=== PATIENT | male | born 1990 | race Two or more races ===

== ENCOUNTER 2021-02-22 18:54 | Emergency (ER) | payer OTHER ==
[~2021-02-22] VITALS: Ht 172.7 cm; Wt 81.8 kg
[2021-02-22] MEDS ORDERED: LIDOCAINE 2%/EPI 1:100,000 20 ML VIAL. INJ ONE (19:30)
[2021-02-22] MEDS ORDERED: LIDOCAINE 2% Multi-Dose 20 ML VIAL. ONE (19:33)
[2021-02-22] MEDS ORDERED: LIDOCAINE 1%/EPI 1:100,000 20 ML VIAL. ONE (19:36)
[2021-02-22 19:42] VITALS: BP 126/61
--- NOTE | 2021-02-22 21:20 | RAD ---
XR FOOT_RIGHT 3 VIEWS dated 02/22/2021 7:50 PM. History: Reason: R foot injury / Spl. Instructions: / History: Comparison: None. Findings: There is no fracture or dislocation. The bone density is normal. No abnormal periosteal reaction is s een. Joint spaces are maintained. Impression: 1. No acute bony abnormality evident. Electronically signed by: Francisco Spence Jr., MD (02/22/2021 9:18 PM) [facility], [place]
[2021-02-22] MEDS ORDERED: DIPH,PERTUSS(ACELL),TET VAC/PF 0.5 ML SYRINGE. VAX IM ONE ×2 (21:42→21:45)
[2021-02-22] MEDS ORDERED: DOXYCYCLINE HYCLATE 100 MG TABLET PO ONE (21:45)
[2021-02-22] MEDS ORDERED: DOXY100T PO (21:50)
[2021-02-22] MEDS ORDERED: CEPH500T PO (21:50)
--- NOTE | 2021-02-22 21:51 | ED.ADGEN ---
Past Medical History Past Medical History: No Pertinent History Past Surgical History: No Surgical History Smoking Status: Never Smoker Alcohol Use: Rarely Drug Use: None General Adult EDM: Chief Complaint: LACERATION/AVULSION HPI: HPI: Patient is a 30 year old male who presents emergency department with complaints of a laceration to the dorsal surface of his proximal right foot. Patient was playing soccer when he collided with another player and the metal cleat caused a laceration. Patient is unsure if his last tetanus was within the last 5 years. He denies any decreased range of motion or loss of sensation of the affected foot. Patient currently denies any pain, he took some Aleve immediately after the incident happened because it hurts so bad that he was unable to bear weight. Patient reports initially the pain was a 10 out of 10. Review of Systems: Review of Systems: Complete ROS is negative unless otherwise noted in HPI. Current Medications: Current Medications Medications (Trade) Dose Ordered Sig/Bennett Start Time Stop Time Status Last Admin Dose Admin Diphtheria/ Tetanus/Acell Pertussis (ADACEL TDap SYRINGE) 0.5 ml ONCE ONCE 02/22/21 21:45 02/22/21 21:46 DC 02/22/21 21:48 0.5 ML Doxycycline Hyclate (Vibra-Tab) 100 mg 1X ONCE 02/22/21 21:45 02/22/21 21:46 DC 02/22/21 21:46 100 MG Lidocaine HCl (Lidocaine 2% 20ml Vial) 20 ml STK-MED ONCE 02/22/21 19:33 02/22/21 19:34 DC Lidocaine/ Epinephrine (LIDOCAINE 1%-EPI 1:100,000 Multi-Dose) 20 ml STK-MED ONCE 02/22/21 19:36 02/22/21 19:36 DC Lidocaine/ Epinephrine (LIDOCAINE 2%-EPI 1:100,000 multi-dose) 20 ml 1X ONCE 02/22/21 19:30 02/22/21 19:43 DC 02/22/21 20:02 20 ML Allergies: Allergies: Allergies Coded Allergies Type Severity Reaction Last Updated Verified No Known Drug Allergies 02/22/21 No Physical Exam: PE: See Above Constitutional: Well developed, well nourished, no acute distress, non-toxic appearance. [] HENT: Normocephalic, atraumatic, bilateral external ears normal, nose normal. [] Eyes: PERRLA, EOMI, conjunctiva normal, no discharge. [] Neck: Normal range of motion, no stridor. [] Cardiovascular:Heart rate regular rhythm Lungs & Thorax: Respirations even and unlabored, no retractions, no respiratory distress Skin: Warm, dry, no erythema, no rash; 5 cm laceration through the underlying fascia to the dorsal surface of the proximal right foot, bleeding controlled bandage in place, small pieces of grass foreign bodies present, no visible laceration to tendon Extremities: Right foot: Full extension and flexion of all 5 toes, sensation intact, cap refill less than 2 seconds, no bony tenderness or obvious deformity, no crepitus, no cyanosis, ROM intact, no edema. [] Neurologic: Alert and oriented X 3, letter, normal sensory, no focal deficits noted. [] Psychologic: Affect normal, judgement normal, mood normal. [] Current Patient Data: Vital Signs: Vital Signs Date Time Temp Pulse Resp B/P (MAP) Pulse Ox O2 Delivery O2 Flow Rate FiO2 02/22/21 19:42 98.5 99 18 126/61 (82) 98 Room Air 98.5 EKG: EKG: [] Heart Score: C/O Chest Pain: No Radiology/Procedures: Radiology/Procedures: PROCEDURE: FOOT RIGHT 3V XR FOOT_RIGHT 3 VIEWS dated 02/22/2021 7:50 PM. History: Reason: R foot injury / Spl. Instructions: / History: Comparison: None. Findings: There is no fracture or dislocation. The bone density is normal. No abnormal periosteal reaction is seen. Joint spaces are maintained. Impression: 1. No acute bony abnormality evident. Electronically signed by: Francisco Spence Jr., MD (02/22/2021 9:18 PM) [facility] Laceration Repair by me: Anesthesia: 2% lidocaine with epinephrine locally Location: Right foot Tendon/Joint/Nerves: No injury Foreign body: None detected after copious irrigation and exploration wit h 1 L NS and chlorhexidine scrub Technique: 3 simple Interrupted Sutures with with 4-0 Ethilon medially, 3 interrupted mattress sutures laterally with 4-0 Ethilon Complexity: No subcutaneous sutures/mucosal repair/edge excision Post Closure Length: 5 cm Patient's bleeding was easily controlled in the department and there is no indication of anemia. No evidence of compartment syndrome, neurologic injury, vascular injury, open joint, tendon laceration, or foreign body. Patient is appropriate for outpatient follow up. Course & Med Decision Making: Course & Med Decision Making Pertinent Labs and Imaging studies reviewed. (See chart for details) Patient is a 30-year-old male presents emergency department with complaints of laceration to his right foot. X-ray was negative for any acute bony abnormality. Laceration repair as documented above. The patient's tetanus was updated in the department. He was given his first dose of doxycycline. In addition to doxycycline I did prescribe Keflex. Patient was given a cam walker for immobilization while the sutures are in place. Recommended follow-up with his team physician within the next 1 to 2 days, sutures out in 10 to 14 days, return to the ER if symptoms worsen or fever develops. Patient verbalized an understanding of home care, medications, follow-up, and return to ED instructions and was in agreement with the plan of care. [] Dragon Disclaimer: Dragon Disclaimer: This electronic medical record was generated, in whole or in part, using a voice recognition dictation system. Departure Departure Impression: Primary Impression: Laceration of foot, right, complicated Additional Impression: Need for Tdap vaccination Disposition: 01 HOME / SELF CARE / HOMELESS Condition: STABLE Referrals: DEVONTE TORRES (PCP) Patient Instructions: Laceration Care, Adult, [id number], VIS, Tetanus, Diphtheria (Td); Tetanus, Diphtheria, Pertussis (Tdap) - CDC Additional Instructions: Fill the prescription and use it as directed. Keep the area clean and dry. You may take Tylenol or ibuprofen as needed for pain. Keep the dressing that was placed today on for 24 hours then change the dressing twice a day and cleanse the area with soap and water. Do not submerge her foot in water until sutures have been removed. Wear the cam boot provided with any activity or ambulation. Follow-up with your primary care doctor, or return to the emergency room in 10- 14 days to have the sutures removed, sooner if you develop signs of infection including: redness, warmth, drainage, or a fever. Scripts Cephalexin (CEPHALEXIN) 500 Mg Tablet 1 TAB PO BID for 10 Days, #20 TAB 0 Refills Prov: SARAH SIDDIQI [employer] 6/26/21 Doxycycline Hyclate (DOXYCYCLINE HYCLATE) 100 Mg Tablet 1 TAB PO BID for 10 Days, #20 TAB 0 Refills Prov: SARAH SIDDIQI [employer] 02/22/21 Problem Qualifiers Primary Impression: Laceration of foot, right, complicated Encounter type: initial encounter Qualified Codes: S91.311A - Laceration without foreign body, right foot, initial encounter SARAH SIDDQII [employer] Feb 22, 2021 21:51
== END 2021-02-22 22:10 | disposition home or self-care (01) ==
LOC: ER 18:54
DX: S91.311A Laceration without foreign body, right foot, initial encounter (principal); W51.XXXA Accidental striking against or bumped into by another person, initial encounter; Y93.66 Activity, soccer; Y92.89 Other specified places as the place of occurrence of the external cause; Y99.8 Other external cause status
CPT/HCPCS: 12002; 73630; 90471; 90715; 99283; J3490